=== PATIENT | male | born 1975 | race Two or more races ===

== ENCOUNTER 2022-01-16 21:17 | Emergency (ER) | payer OTHER, MEDICAID ==
[~2022-01-16] VITALS: Ht 175.3 cm; Wt 83.9 kg
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
--- NOTE | 2022-01-16 22:58 | NUR ---
PATIENT TRANSFERRED TO WHEELCHAIR AND THEN TO BED 6 FOR EVAL, C-SPINE REMAINS IN PLACE. PATIENT LYING FLAT, IN FULL SPINALS DUE TO "ENTIRE BACK HURTING".
[2022-01-16 22:59] VITALS: BP_SYST 159
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
[2022-01-16] MEDS ORDERED: MORPHINE 4 MG INJ. 4 MG/ML VIAL IVP ONE (23:30)
--- NOTE | 2022-01-17 00:03 | NUR ---
RADHA Luna at bedside.
[2022-01-17 00:41] LABS: BASOPHILS # (AUTO) 0.1 K/uL (0.0-0.2); BASOPHILS % (AUTO) 0.7 % (0.0-2.0); EOSINOPHILS # (AUTO) 0.2 K/uL (0.0-0.4); EOSINOPHILS % (AUTO) 1.9 % (0.0-4.0); HEMATOCRIT 46.1 % (36-54); HEMOGLOBIN 15.3 g/dL (14.0-18.0); LYMPHOCYTES # (AUTO) 2.8 K/uL (1.0-5.5); LYMPHOCYTES % (AUTO) 24.1 % (20.5-51.5); MEAN CORPUSCULAR HEMOGLOBIN 29 pg (27-31); MEAN CORPUSCULAR HGB CONC 33 % (32-36); MEAN CORPUSCULAR VOLUME 86 fL (79.0-98.0); MONOCYTES # (AUTO) 0.8 K/uL (0.0-1.0); MONOCYTES % (AUTO) 6.4 % (1.7-9.3); NEUTROPHILS # (AUTO) 7.9 K/uL (1.8-7.7); NEUTROPHILS % (AUTO) 66.9 % (40.0-70.0); PLATELET COUNT (AUTO) 197 K/uL (130-430); RED BLOOD CELL COUNT(AUTO) 5.34 MIL/uL (4.2-6.2); RED CELL DISTRIBUTION WIDTH 14.1 % (9.0-15.0); WHITE BLOOD COUNT (AUTO) 11.8 K/uL (4.8-10.8)
[2022-01-17 00:49] LABS: CREATININE 0.92 mg/dL (0.55-1.30); POTASSIUM 3.9 mmol/L (3.5-5.1)
[2022-01-17 00:51] LABS: PROTHROMBIN TIME 10.3 SECS (9.5-12.5)
[2022-01-17 01:00] LABS: ALBUMIN 3.7 g/dL (3.4-4.8); TOTAL BILIRUBIN 0.1 mg/dL (0.0-1.0)
[2022-01-17] MEDS ORDERED: MORPHINE 4 MG INJ. 4 MG/ML VIAL IVP ONE (01:00)
--- NOTE | 2022-01-17 01:08 | NUR ---
# 20 gauge angiocath placed to left wrist. Use of asceptic technique. Opsite placed over site. Blood return noted. Flushed with 10 cc of normal saline. No evidence of infiltration noted. Patient tolerated well.
--- NOTE | 2022-01-17 01:15 | NUR ---
Patient taken to CT via gurney and accompanied by radiology.
[2022-01-17 01:17] LABS: CALCIUM 8.9 mg/dL (8.4-11.0)
--- NOTE | 2022-01-17 01:55 | NUR ---
Patient back from CT via gurney accompanied by radiology.
[2022-01-17] MEDS ORDERED: MORPHINE SULFATE 10 MG/ML VIAL IVP ONE (04:45)
[2022-01-17] MEDS ORDERED: predniSONE 20 MG TABLET PO ONE (05:30)
[2022-01-17] MEDS ORDERED: PRED20TA PO (05:36)
[2022-01-17] MEDS ORDERED: IBUP-1971 PO (06:44)
[2022-01-17] MEDS ORDERED: HYDR-3917 PO (06:44)
--- NOTE | 2022-01-17 07:02 | NUR ---
Patient given written and verbal discharge instructions and verbalizes understanding. ER MD discussed with patient the results and treatment provided. Patient in stable condition. ID arm band removed. IV catheter removed intact and dressing applied, no active bleeding. Rx of [place] and Ibuprofen given. Patient educated on pain management and to follow up with PMD. Pain Scale 0/10. Opportunity for questions provided and answered. Medication side effect fact sheet provided. Patient in stable condition and accompanied by upon discharge.
[2022-01-17 07:04] VITALS: BP_SYST 147
== END 2022-01-17 07:02 | disposition home or self-care (01) ==
LOC: SED 21:17
DX: S39.012A Strain of muscle, fascia and tendon of lower back, initial encounter (principal); S16.1XXA Strain of muscle, fascia and tendon at neck level, initial encounter; S46.911A Strain of unspecified muscle, fascia and tendon at shoulder and upper arm level, right arm, initial encounter; S46.912A Strain of unspecified muscle, fascia and tendon at shoulder and upper arm level, left arm, initial encounter; S20.219A Contusion of unspecified front wall of thorax, initial encounter; S30.1XXA Contusion of abdominal wall, initial encounter; S09.90XA Unspecified injury of head, initial encounter; M54.12 Radiculopathy, cervical region; I71.20 Thoracic aortic aneurysm, without rupture, unspecified; F17.200 Nicotine dependence, unspecified, uncomplicated; Z79.899 Other long term (current) drug therapy; V49.40XA Driver injured in collision with unspecified motor vehicles in traffic accident, initial encounter; Y93.89 Activity, other specified; Y92.89 Other specified places as the place of occurrence of the external cause; Y99.8 Other external cause status
CPT/HCPCS: 99285; 80053; 85025; 85610; 36415; 96372; 70450; 96374; 71260; 72125; 72131; 74160; 96376; 76376; J2270 ×3; J7512; Q9967